=== PATIENT | female | born 1940 | race Caucasian/White ===

== ENCOUNTER 2020-01-30 02:32 | Inpatient (IN) | payer MEDICARE, OTHER ==
[2020-01-30] MEDS ORDERED: MAGNESIUM SULFATE/D5W 1 GM/100 ML RTUPB IV ONE (02:46)
[2020-01-30] MEDS ORDERED: IPRATROPIUM/ALBUTEROL 0.5-2.5 MG/3 ML AMPUL NEB ONE (02:47)
--- NOTE | 2020-01-30 02:48 | ER Document Report ---
ED Respiratory Problem - General Chief Complaint: Respiratory Distress Stated Complaint: RESPIRATORY DISTRESS Time Seen by Provider: 01/30/20 02:35 Notes: Patient is a 79-year-old female with a history of COPD who is a former smoker but not on home oxygen, that comes to the emergency department by EMS for chief complaint of difficulty breathing. She comes from home. Patient states she has had a cough that was her normal cough until around noon today where she started having difficulty breathing, coughing, and wheezing. Patient states she was told by her daughter who checked her temperature that she had a fever at home, EMS states that they were told it was 102 F. Patient was not noted to have a fever on arrival, however on arrival on room air patient was 87% oxygen saturation after EMS had given her 1 DuoNeb, 1 albuterol, and Solu-Medrol 125 mg. Patient denies recent hospitalization. Only other reported medical history is hyperlipidemia. TRAVEL OUTSIDE OF THE [place] IN LAST 30 DAYS: No - Related Data Allergies/Adverse Reactions: Sulfa (Sulfonamide Antibiotics) Adverse Reaction (Verified 05/19/16 14:50) Past Medical History - General Information source: Patient, Emergency Med Personnel - Social History Smoking Status: Former Smoker Lives with: Family Family History: Reviewed & Not Pertinent - Past Medical History Cardiac Medical History: Reports: Hx Hypercholesterolemia Denies: Hx Heart Attack, Hx Hypertension Pulmonary Medical History: Reports: Hx COPD Denies: Hx Asthma Neurological Medical History: Denies: Hx Cerebrovascular Accident, Hx Seizures GI Medical History: Denies: Hx Hepatitis, Hx Hiatal Hernia, Hx Ulcer Infectious Medical History: Denies: Hx Hepatitis Past Surgical History: Denies: Hx Hysterectomy, Hx Mastectomy, Hx Open Heart Surgery, Hx Pacemaker - Immunizations Hx Diphtheria, Pertussis, Tetanus Vaccination: Yes Review of Systems - Review of Systems Constitutional: See HPI EENT: No symptoms reported Cardiovascular: No symptoms reported Respiratory: See HPI Gastrointestinal: No symptoms reported Genitourinary: No symptoms reported Female Genitourinary: No symptoms reported Musculoskeletal: No symptoms reported Skin: No symptoms reported Hematologic/Lymphatic: No symptoms reported Neurological/Psychological: No symptoms reported Physical Exam - Vital signs Vitals: Temp 98.6 F 01/30/20 02:32 - Notes Notes: GENERAL: Alert, interacts well. HEAD: Normocephalic, atraumatic. EYES: Pupils equal, round, and reactive to light. Extraocular movements intact. ENT: Oral mucosa moist, tongue midline. Oropharynx unremarkable. Airway patent. Nares patent, sinuses non-tender NECK: Full range of motion. Supple. Trachea midline. No lymphadenopathy. LUNGS: Decreased breath sounds in the lower lung welsh, expiratory wheezes throughout. Speaks in full sentences. Occasional congested coughing episodes. HEART: Regular rate and rhythm. No murmur ABDOMEN: Soft, non-tender. Non-distended. EXTREMITIES: Moves all 4 extremities spontaneously. No edema, normal radial and dorsalis pedis pulses bilaterally. No cyanosis. BACK: no cervical, thoracic, lumbar midline tenderness. No saddle anesthesia, normal distal neurovascular exam. Moves all extremities in full range of motion. NEUROLOGICAL: Alert and oriented x3. Normal speech. Cranial nerves II through XII grossly intact. Strength 5/5 in all extremities. PSYCH: Normal affect, normal mood. SKIN: Warm, dry, normal turgor. No rashes or lesions noted. Course - Re-evaluation Re-evalutation: Patient was 87% on room air initially, given additional DuoNeb, given magnesium, given IV fluids. Patient was placed on oxygen. With oxygen patient is at about 94 to 95% on average, she states she feels much improved, she does not appear toxic. CBC shows leukopenia, bandemia at 8%. Blood cultures are pending. Chest x-ray indicates right sided pneumonia, pending official read. Patient was started on antibiotics for coverage of community-acquired pneumonia. Lactic acid is not elevated. Chemistry nonspecific, troponin is not elevated, EKG unremarkable. On evaluation patient still has some expiratory wheezing and coughing. Patient will remain on oxygen. Because of her pneumonia, hypoxia, COPD exacerbation, age, will discuss with hospitalist for admission. Patient states understanding and agreement with plan. Discussed with Dr. Laird, hospitalist, patient accepted to telemetry for admission. - Vital Signs Vital signs: Temp Pulse Resp BP Pulse Ox 98.6 F 96 24 H 152/74 H 96 01/30/20 02:32 01/30/20 04:40 01/30/20 06:01 01/30/20 06:01 01/30/20 06:01 - Laboratory Result Diagrams: 01/30/20 03:19 01/30/20 03:19 Laboratory results interpreted by me: 01/30/20 01/30/20 03:19 03:19 WBC 3.7 L RBC 3.67 L MCV 103 H MCH 36.6 H Band Neutrophils % 8 H Lymphocytes % (Manual) 9 L Abs Lymphs (Manual) 0.4 L Sodium 130.6 L Chloride 97 L BUN 24 H - EKG Interpretation by Me Additional EKG results interpreted by me: EKG shows sinus tachycardia at a rate of 109, QTC of 415, normal axis, no T wave inversions or ST segment changes in consecutive leads. Discharge - Discharge Clinical Impression: Hypoxia, COPD exacerbation, Wheezing, Bandemia Pneumonia Qualifiers: Pneumonia type: due to unspecified organism Laterality: right Lung location: lower lobe of lung Qualified Code(s): J18.9 - Pneumonia, unspecified organism Condition: Stable Disposition: ADMITTED INPATIENT Admitting Provider: Eitan (Hospitalist) Unit Admitted: Telemetry
[2020-01-30] MEDS ORDERED: NORMAL SALINE 500 ML IV ONE (02:49)
[2020-01-30] MEDS ORDERED: CEFTRIAXONE 1 GM/D5W RTU 1 GM/50 ML RTUPB IV ONE (03:19)
[2020-01-30] MEDS ORDERED: AZITHROMYCIN INJ 500 MG VIAL IV ONE (03:22)
[2020-01-30 03:39] LABS: WHITE BLOOD COUNT 3.7 10^3/uL (4.0-10.5)
[2020-01-30 03:49] LABS: ALBUMIN 3.9 g/dL (3.5-5.0); ALKALINE PHOSPHATASE 67 U/L (38-126); ANION GAP 8 (5-19); ASPARTATE AMINO TRANSFERASE 25 U/L (14-36); BILIRUBIN,DIRECT 0.1 mg/dL (0.0-0.4); BILIRUBIN,TOTAL 0.8 mg/dL (0.2-1.3); BLOOD UREA NITROGEN 24 mg/dL (7-20); CALCIUM 9.4 mg/dL (8.4-10.2); CARBON DIOXIDE 26 mmol/L (22-30); CHLORIDE 97 mmol/L (98-107); GLUCOSE 108 mg/dL (75-110); POTASSIUM 4.1 mmol/L (3.6-5.0); TOTAL PROTEIN 6.7 g/dL (6.3-8.2)
[2020-01-30 03:54] LABS: HEMATOCRIT 37.8 % (36.0-47.0); HEMOGLOBIN 13.4 g/dL (12.0-15.5); MEAN CORPUSCULAR HEMOGLOBIN 36.6 pg (27.0-33.4); MEAN CORPUSCULAR HGB CONC 35.5 g/dL (32.0-36.0); MEAN CORPUSCULAR VOLUME 103 fl (80-97); RED BLOOD COUNT 3.67 10^6/uL (3.72-5.28); RED CELL DISTRIBUTION WIDTH 13.8 % (11.5-14.0)
--- NOTE | 2020-01-30 04:04 | RADIOLOGY REPORT (SQ) ---
EXAM DESCRIPTION: XR CHEST 1 VIEW COMPLETED DATE/TME: 01/30/2020 02:45 CLINICAL HISTORY: 79 years Female, shortness of breath, hypoxia, cough COMPARISON: None. NUMBER OF VIEWS/TECHNIQUE: 1/AP FINDINGS: Moderate patchy opacities extensively of the right lung. Atherosclerosis. Adequate lung volume, normal cardiac silhouette, and intact bony thorax. IMPRESSION: Moderate patchy opacities of the right lung may indicate pneumonia or asymmetric pulmonary edema. Recommend CR/CT surveillance including at 7-12 weeks following initiation of any clinically warranted therapy.
[2020-01-30 04:19] LABS: ABSOLUTE LYMPHOCYTES# (MANUAL) 0.4 10^3/uL (0.5-4.7); ABSOLUTE MONOCYTES # (MANUAL) 0.2 10^3/uL (0.1-1.4); BAND NEUTROPHILS % (MANUAL) 8 % (3-5); BASOPHILS % (MANUAL) 1 % (0-2); EOSINOPHILS % (MANUAL) 0 % (0-6); LYMPHOCYTES % (MANUAL) 9 % (13-45); MONOCYTES % (MANUAL) 5 % (3-13); SEGMENTED NEUTROPHILS % (MAN) 76 % (42-78); TOTAL CELLS COUNTED 100
[2020-01-30 04:20] LABS: PLATELET CLUMPS PRESENT; PLATELET COMMENT ADEQUATE
[2020-01-30 04:21] LABS: PLATELET COUNT 159 10^3/uL (150-450)
[2020-01-30 04:30] LABS: VENOUS BLOOD BASE EXCESS -1.9 mmol/L; VENOUS BLOOD HCO3 23.6 mmol/L (20-32); VENOUS BLOOD PH 7.36 (7.30-7.42)
[2020-01-30] MEDS ORDERED: HYDRALAZINE HCL INJ/PF 20 MG/1 ML SDV IV PRN (04:36)
[2020-01-30] MEDS ORDERED: IPRATROPIUM/ALBUTEROL 0.5-2.5 MG/3 ML AMPUL NEB PRN (04:37)
[2020-01-30] MEDS: CHLORPHENIRAMINE MALEATE 4 MG TABLET PO SCH ×4 (06:27→22:30)
[2020-01-30] MEDS: HEPARIN SOD (PORCINE) 5,000 UNIT/ML 1 ML VIAL SUBCUT SCH ×3 (06:27→22:28)
[2020-01-30] MEDS: ACETAMINOPHEN 325 MG TABLET PO PRN (06:27)
[2020-01-30] MEDS ORDERED: NICOTINE 14 MG/24 HR PATCH.TD24 TD ONE (06:30)
--- NOTE | 2020-01-30 06:31 | PDOC H&P ---
History of Present Illness Admission Date/PCP: 01/30/20 04:44 SEAN MILLER NP Patient complains of: Shortness of breath fever History of Present Illness: TANI CERON is a 79 year old female with a past medical history of hypothyroidism, dyslipidemia, COPD, chronic bronchitis and persistent tobacco dependence. She presents with 24 hours of shortness of breath and cough developing fever prompting evaluation the emergency department where she is found to have a bandemia and an infiltrate in the right lung. She denies infectious contacts, travel, loss of taste. She admits recent doxycycline for bronchitis. Past Medical History Cardiac Medical History: Reports: Hyperlipidema Denies: Myocardial Infarction, Hypertension Pulmonary Medical History: Reports: Bronchitis, Chronic Obstructive Pulmonary Disease (COPD) Denies: Asthma Neurological Medical History: Denies: Seizures GI Medical History: Denies: Hepatitis, Hiatal Hernia Musculoskeltal Medical History: Reports: Arthritis Psychiatric Medical History: Reports: Tobacco Dependency Hematology: Denies: Anemia, Sickle Cell Disease Past Surgical History Past Surgical History: Denies: Amputation, Hysterectomy, Mastectomy, Pacemaker Social History Lives with: Family Smoking Status: Former Smoker Family History Family History: COPD, Hypertension Parental Family History Reviewed: Yes Children Family History Reviewed: Yes Sibling(s) Family History Reviewed.: Yes Medication/Allergy Home Medications: Aspirin [Aspirin EC] 81 mg PO QHS 05/19/16 Esomeprazole Magnesium [Nexium] 20 mg PO BID 05/19/16 Fluticasone/Salmeterol [Advair 500-50 Diskus 28 Dose] 1 inh IH Q12H 05/19/16 Naproxen Sodium [All Day Pain Relief] 220 mg PO BID 05/19/16 Pravastatin Sodium [Pravachol] 40 mg PO DAILY 05/19/16 Sertraline HCl [Zoloft] 100 mg PO DAILY 05/19/16 Thyroxine 125 mcg PO DAILY 05/19/16 Tiotropium Corona [Spiriva Handihaler 18 mcg/dose (30 Dose)] 1 cap IH DAILY 05/19/16 Albuterol Sulfate [Proair Hfa Inhalation Aerosol 8.5 gm Mdi] 2 puff IH Q4 PRN 05/24/16 Benzonatate [Tessalon Perle 100 mg Capsule] 200 mg PO TID PRN 06/07/16 Difluprednate [Durezol] 1 drop OP TID 06/07/16 Doxycycline Hyclate 100 mg PO BID 06/07/16 Ipratropium/Albuterol Sulfate [Iprat-Albut 0.5-3(2.5) Mg/3 Ml] 3 ml IH Q6H PRN 06/07/16 Allergies/Adverse Reactions: Sulfa (Sulfonamide Antibiotics) Adverse Reaction (Verified 05/19/16 14:50) Review of Systems Constitutional: ABSENT: chills, fever(s), headache(s), weight gain, weight loss Eyes: ABSENT: visual disturbances Ears: ABSENT: hearing changes Cardiovascular: ABSENT: chest pain, dyspnea on exertion, edema, orthropnea, palpitations Respiratory: ABSENT: cough, hemoptysis Gastrointestinal: ABSENT: abdominal pain, constipation, diarrhea, hematemesis, hematochezia, nausea, vomiting Genitourinary: ABSENT: dysuria, hematuria Musculoskeletal: ABSENT: joint swelling Integumentary: ABSENT: rash, wounds Neurological: ABSENT: abnormal gait, abnormal speech, confusion, dizziness, focal weakness, syncope Psychiatric: ABSENT: anxiety, depression, homidical ideation, suicidal ideation Endocrine: ABSENT: cold intolerance, heat intolerance, polydipsia, polyuria Hematologic/Lymphatic: ABSENT: easy bleeding, easy bruising Physical Exam Vital Signs: Temp Pulse Resp BP Pulse Ox 98.6 F 96 24 H 152/74 H 96 01/30/20 02:32 01/30/20 04:40 01/30/20 06:01 01/30/20 06:01 01/30/20 06:01 Intake & Output 01/28/20 01/29/20 01/30/20 11:59 11:59 11:59 Intake Total 650 Balance 650 Weight 69.1 kg General appearance: PRESENT: cooperative, disheveled, mild distress, thin, well- developed. ABSENT: well-nourished Head exam: PRESENT: atraumatic, normocephalic Eye exam: PRESENT: conjunctiva pink, EOMI, PERRLA. ABSENT: scleral icterus Ear exam: PRESENT: normal external ear exam Mouth exam: PRESENT: moist, tongue midline Neck exam: ABSENT: carotid bruit, JVD, lymphadenopathy, thyromegaly Respiratory exam: PRESENT: accessory muscle use, crackles, decreased breath sounds, prolonged expiratory phas, retraction, rhonchi, symmetrical. ABSENT: wheezes Cardiovascular exam: PRESENT: RRR. ABSENT: diastolic murmur, rubs, systolic murmur Pulses: PRESENT: normal dorsalis pedis pul Vascular exam: PRESENT: normal capillary refill GI/Abdominal exam: PRESENT: normal bowel sounds, soft. ABSENT: distended, guarding, mass, organolmegaly, rebound, tenderness Rectal exam: PRESENT: deferred Extremities exam: PRESENT: full ROM. ABSENT: calf tenderness, clubbing, pedal edema Neurological exam: PRESENT: alert, awake, oriented to person, oriented to place, oriented to time, oriented to situation, CN II-XII grossly intact. ABSENT: motor sensory deficit Psychiatric exam: PRESENT: appropriate affect, normal mood. ABSENT: homicidal ideation, suicidal ideation Skin exam: PRESENT: dry, intact, warm. ABSENT: cyanosis, rash Results Laboratory Results: 01/30/20 03:19 01/30/20 03:19 01/30/20 01/30/20 01/30/20 03:19 03:19 03:19 WBC 3.7 L RBC 3.67 L Hgb 13.4 Hct 37.8 MCV 103 H MCH 36.6 H MCHC 35.5 RDW 13.8 Plt Count 159 Seg Neutrophils % Not Reportable VBG pH VBG pCO2 VBG HCO3 VBG Base Excess Sodium 130.6 L Potassium 4.1 Chloride 97 L Carbon Dioxide 26 Anion Gap 8 BUN 24 H Creatinine 0.87 Est GFR ( Amer) > 60 Glucose 108 Lactic Acid 1.2 Calcium 9.4 Total Bilirubin 0.8 AST 25 Alkaline Phosphatase 67 Total Protein 6.7 Albumin 3.9 01/30/20 04:23 WBC RBC Hgb Hct MCV MCH MCHC RDW Plt Count Seg Neutrophils % VBG pH 7.36 VBG pCO2 43.0 VBG HCO3 23.6 VBG Base Excess -1.9 Sodium Potassium Chloride Carbon Dioxide Anion Gap BUN Creatinine Est GFR ( Amer) Glucose Lactic Acid Calcium Total Bilirubin AST Alkaline Phosphatase Total Protein Albumin 01/30/20 03:19 Troponin I < 0.012 Impressions: Chest X-Ray 01/30/20 02:45 IMPRESSION: Moderate patchy opacities of the right lung may indicate pneumonia or asymmetric pulmonary edema. Recommend CR/CT surveillance including at 7-12 weeks following initiation of any clinically warranted therapy. Assessment and Plan - Diagnosis (1) Pneumonia Qualifiers: Pneumonia type: due to unspecified organism Laterality: right Lung location: lower lobe of lung Qualified Code(s): J18.9 - Pneumonia, unspecified organism Is this a current diagnosis for this admission?: Yes Plan: Pneumonia care set, empiric antibiotic, supplemental oxygen, Flonase and incentive spirometry, follow-up CBC blood and sputum culture (2) Bandemia Is this a current diagnosis for this admission?: Yes Plan: Secondary to #1, follow-up CBC (3) COPD exacerbation Is this a current diagnosis for this admission?: Yes Plan: Supplemental oxygen, incentive spirometry, flutter valve (4) Macrocytic anemia Is this a current diagnosis for this admission?: Yes Plan: Follow-up anemia labs (5) Tobacco dependence Is this a current diagnosis for this admission?: Yes Plan: Tobacco cessation counseling performed, nicotine replacement options discussed, nicotine patch ordered. - Time Time Spent with patient: 25-34 minutes
[2020-01-30 06:32] LABS: ABSOLUTE RETICS # 0.038 10^6/uL (0.028-0.122); RETICULOCYTE COUNT (AUTO) 1.04 % (0.66-2.85)
[2020-01-30 06:39] LABS: IRON(TIBC) 140.2 ug/dL (37-170)
[2020-01-30] MEDS: NORMAL SALINE 1000 ML 1,000 ML IV PRN ×2 (07:07→18:09)
[2020-01-30] MEDS: KETOROLAC TROMETHAMINE INJ/PF 30 MG/1 ML SDV IV PRN ×2 (07:10→23:25)
--- NOTE | 2020-01-30 07:40 | EKG REPORT ---
SEVERITY:- ABNORMAL ECG - SINUS TACHYCARDIA VENTRICULAR PREMATURE COMPLEX LOW VOLTAGE IN FRONTAL LEADS NONSPECIFIC T ABNORMALITIES, ANT-LAT LEADS : Confirmed by: Greg Nettles MD 30-Jan-2020 07:40:03
[2020-01-30] MEDS ORDERED: IPRATROPIUM/ALBUTEROL 0.5-2.5 MG/3 ML AMPUL NEB SCH (08:00)
[2020-01-30] MEDS: FLUTICASONE NASAL SPRAY 50 MCG/SPRY 120 SPRAY/16 GM NASL SCH ×2 (10:59→22:29)
[2020-01-30] MEDS: OXYBUTYNIN CHLORIDE 5 MG TABLET PO SCH (18:00)
[2020-01-30] MEDS: BUDESONIDE NEB 0.25 MG/2 ML AMPUL NEB SCH (20:49)
[2020-01-30] MEDS: IPRATROPIUM/ALBUTEROL 0.5-2.5 MG/3 ML AMPUL NEB SCH (20:49)
[2020-01-30] MEDS: BUPROPION HCL 100 MG TABLET PO SCH (22:28)
[2020-01-30] MEDS: CEFTRIAXONE 1 GM/D5W RTU 1 GM/50 ML RTUPB IV SCH (22:28)
[2020-01-30] MEDS: AZITHROMYCIN 500 MG in DEXTROSE 5%-WATER 250 ML IV SCH (22:29)
[2020-01-30] MEDS: ASPIRIN 81 MG TABLET, ENT COATED PO SCH (22:29)
[2020-01-31] MEDS: BUPROPION HCL 100 MG TABLET PO SCH ×3 (05:33→21:48)
[2020-01-31] MEDS: LEVOTHYROXINE SODIUM 0.15 MG TABLET PO SCH (05:34)
[2020-01-31] MEDS: HEPARIN SOD (PORCINE) 5,000 UNIT/ML 1 ML VIAL SUBCUT SCH ×3 (05:34→21:50)
[2020-01-31 05:56] LABS: ABSOLUTE LYMPHOCYTES (AUTO) 1.1 10^3/uL (0.5-4.7); ABSOLUTE MONOCYTES (AUTO) 0.5 10^3/uL (0.1-1.4); ABSOLUTE NEUT (AUTO) 8.1 10^3/uL (1.7-8.2); BASOPHILS % (AUTO) 0.2 % (0-2); EOSINOPHILS % (AUTO) 0.1 % (0-6); HEMATOCRIT 30.3 % (36.0-47.0); LYMPHOCYTES % (AUTO) 11.4 % (13-45); MEAN CORPUSCULAR HEMOGLOBIN 37.4 pg (27.0-33.4); MEAN CORPUSCULAR HGB CONC 36.1 g/dL (32.0-36.0); MEAN CORPUSCULAR VOLUME 104 fl (80-97); MONOCYTES % (AUTO) 5.2 % (3-13); PLATELET COUNT 129 10^3/uL (150-450); RED BLOOD COUNT 2.92 10^6/uL (3.72-5.28); RED CELL DISTRIBUTION WIDTH 13.6 % (11.5-14.0); SEGMENTED NEUTROPHILS % (AUTO) 83.1 % (42-78); TOTAL CELLS COUNTED % (AUTO) 100 %
[2020-01-31 05:59] LABS: WHITE BLOOD COUNT 9.7 10^3/uL (4.0-10.5)
[2020-01-31 06:00] LABS: HEMOGLOBIN 10.9 g/dL (12.0-15.5)
[2020-01-31 06:10] LABS: ANION GAP 5 (5-19); BLOOD UREA NITROGEN 22 mg/dL (7-20); CALCIUM 8.6 mg/dL (8.4-10.2); CARBON DIOXIDE 25 mmol/L (22-30); CHLORIDE 98 mmol/L (98-107); GLUCOSE 88 mg/dL (75-110)
[2020-01-31] MEDS: IPRATROPIUM/ALBUTEROL 0.5-2.5 MG/3 ML AMPUL NEB SCH ×3 (08:44→20:15)
[2020-01-31] MEDS: BUDESONIDE NEB 0.25 MG/2 ML AMPUL NEB SCH ×2 (08:50→20:15)
[2020-01-31] MEDS: CHOLECALCIFEROL (D3) 1,000 UNIT (25 MCG) TABLET PO SCH (09:54)
[2020-01-31] MEDS: PANTOPRAZOLE SODIUM 20 MG TABLET.DR PO SCH (09:54)
[2020-01-31] MEDS: UMECLIDINIUM BROMIDE 62.5 MCG/DOSE IH SCH (09:54)
[2020-01-31] MEDS: CYANOCOBALAMIN (VITAMIN B-12) 1,000 MCG TABLET PO SCH (09:54)
[2020-01-31] MEDS: SERTRALINE HCL 50 MG TABLET PO SCH (09:55)
[2020-01-31] MEDS: OXYBUTYNIN CHLORIDE 5 MG TABLET PO SCH ×2 (09:55→17:25)
[2020-01-31] MEDS: NICOTINE 14 MG/24 HR PATCH.TD24 TD SCH (09:55)
[2020-01-31] MEDS: FLUTICASONE NASAL SPRAY 50 MCG/SPRY 120 SPRAY/16 GM NASL SCH ×2 (09:59→21:49)
[2020-01-31] MEDS ORDERED: MAG HYDROX/AL HYDROX/SIMETH SUSP 30 ML UDCUP PO PRN (11:51)
--- NOTE | 2020-01-31 12:10 | PDOC PROGRESS REPORT ---
Subjective Progress Note for:: 01/31/20 Subjective:: Patient complains of low heartburn today. States that she feels short of breath on ambulation today. She does not use oxygen at home. Reason For Visit: PNEUMONIA,HYPOXIA,COPD EXACERBATION,WHEEZING, Physical Exam Vital Signs: Temp Pulse Resp BP Pulse Ox 97.8 F 81 16 132/76 H 95 01/31/20 08:00 01/31/20 08:44 01/31/20 08:44 01/31/20 08:00 01/31/20 08:44 Intake & Output 01/30/20 01/31/20 02/01/20 06:59 06:59 06:59 Intake Total 650 3120 Output Total 2 Balance 650 3118 Weight 69.1 kg 68.2 kg General appearance: PRESENT: no acute distress, cooperative, well-nourished. ABSENT: severe distress Neck exam: ABSENT: JVD Respiratory exam: PRESENT: crackles - Right lower lung, symmetrical, unlabored, wheezes. ABSENT: tachypnea Cardiovascular exam: PRESENT: RRR, +S1, +S2. ABSENT: tachycardia GI/Abdominal exam: PRESENT: soft. ABSENT: rebound, rigid, tenderness Extremities exam: PRESENT: +1 edema Neurological exam: PRESENT: alert, awake, oriented to person, oriented to place, oriented to time Results Laboratory Results: 01/31/20 05:29 01/31/20 05:29 01/30/20 01/30/20 01/31/20 13:50 17:53 05:29 WBC 9.7 D RBC 2.92 L Hgb 10.9 L D Hct 30.3 L MCV 104 H MCH 37.4 H MCHC 36.1 H RDW 13.6 Plt Count 129 L Seg Neutrophils % 83.1 H Sodium Potassium Chloride Carbon Dioxide Anion Gap BUN Creatinine Est GFR ( Amer) Glucose Lactic Acid 3.4 H 1.3 Calcium 01/31/20 05:29 WBC RBC Hgb Hct MCV MCH MCHC RDW Plt Count Seg Neutrophils % Sodium 128.2 L Potassium 4.0 Chloride 98 Carbon Dioxide 25 Anion Gap 5 BUN 22 H Creatinine 0.66 Est GFR ( Amer) > 60 Glucose 88 Lactic Acid Calcium 8.6 01/30/20 03:19 Troponin I < 0.012 Impressions: Chest X-Ray 01/30/20 02:45 IMPRESSION: Moderate patchy opacities of the right lung may indicate pneumonia or asymmetric pulmonary edema. Recommend CR/CT surveillance including at 7-12 weeks following initiation of any clinically warranted therapy. Assessment and Plan - Diagnosis (1) Community acquired bacterial pneumonia Is this a current diagnosis for this admission?: Yes Plan: Ceftriaxone and azithromycin day 2. Right-sided pneumonia. Denies history of aspiration. Follow-up blood cultures. (2) Hyponatremia Is this a current diagnosis for this admission?: Yes Plan: Likely secondary to receiving fluids yesterday. Fluids have been discontinued. Will monitor sodium levels. (3) COPD exacerbation Is this a current diagnosis for this admission?: Yes Plan: Triggered by right-sided pneumonia. Frequent nebulizer treatments. Will start on IV steroids today. (4) GERD (gastroesophageal reflux disease) Qualifiers: Esophagitis presence: esophagitis presence not specified Qualified Code(s): K21.9 - Gastro-esophageal reflux disease without esophagitis Is this a current diagnosis for this admission?: Yes Plan: PPI. Maalox as needed (5) Sepsis Qualifiers: Sepsis type: sepsis due to unspecified organism Sepsis acute organ dysfunction status: unspecified Qualified Code(s): A41.9 - Sepsis, unspecified organism Is this a current diagnosis for this admission?: Yes Plan: Pneumonia with lactic acidosis, leukopenia, tachycardia, tachypnea and respiratory distress. Seems to be that patient sepsis has improved with fluids. Lactic acidosis has resolved status post fluids. Monitor. (6) Tobacco dependence Is this a current diagnosis for this admission?: Yes Plan: Nicotine patch offered. Tobacco cessation counseling performed. - Time Time Spent with patient: Less than 15 minutes
[2020-01-31] MEDS: METHYLPREDNISOLONE INJ 40 MG/1 ML SDV IV SCH ×2 (13:25→21:48)
[2020-01-31] MEDS: ASPIRIN 81 MG TABLET, ENT COATED PO SCH (21:48)
[2020-01-31] MEDS: CEFTRIAXONE 1 GM/D5W RTU 1 GM/50 ML RTUPB IV SCH (21:49)
[2020-01-31] MEDS: AZITHROMYCIN 500 MG in DEXTROSE 5%-WATER 250 ML IV SCH (21:49)
[2020-02-01] MEDS: HEPARIN SOD (PORCINE) 5,000 UNIT/ML 1 ML VIAL SUBCUT SCH ×3 (05:10→21:00)
[2020-02-01] MEDS: BUPROPION HCL 100 MG TABLET PO SCH ×2 (05:10→17:25)
[2020-02-01] MEDS: LEVOTHYROXINE SODIUM 0.15 MG TABLET PO SCH (05:10)
[2020-02-01 06:13] LABS: HEMATOCRIT 31.6 % (36.0-47.0); HEMOGLOBIN 11.3 g/dL (12.0-15.5); MEAN CORPUSCULAR HEMOGLOBIN 36.9 pg (27.0-33.4); MEAN CORPUSCULAR HGB CONC 35.6 g/dL (32.0-36.0); MEAN CORPUSCULAR VOLUME 104 fl (80-97); PLATELET COUNT 144 10^3/uL (150-450); RED BLOOD COUNT 3.05 10^6/uL (3.72-5.28); RED CELL DISTRIBUTION WIDTH 13.9 % (11.5-14.0); WHITE BLOOD COUNT 8.6 10^3/uL (4.0-10.5)
[2020-02-01 06:49] LABS: ANION GAP 7 (5-19); BLOOD UREA NITROGEN 17 mg/dL (7-20); CARBON DIOXIDE 26 mmol/L (22-30); CHLORIDE 96 mmol/L (98-107); GLUCOSE 137 mg/dL (75-110); POTASSIUM 4.3 mmol/L (3.6-5.0)
[2020-02-01 07:17] LABS: ABSOLUTE LYMPHOCYTES# (MANUAL) 0.4 10^3/uL (0.5-4.7); BAND NEUTROPHILS % (MANUAL) 2 % (3-5); BASOPHILS % (MANUAL) 0 % (0-2); EOSINOPHILS % (MANUAL) 0 % (0-6); LYMPHOCYTES % (MANUAL) 5 % (13-45); MONOCYTES % (MANUAL) 0 % (3-13); SEGMENTED NEUTROPHILS % (MAN) 93 % (42-78); TOTAL CELLS COUNTED 100
[2020-02-01 07:22] LABS: ANISOCYTOSIS SLIGHT; HYPOCHROMASIA SLIGHT; OVALOCYTES SLIGHT; POIKILOCYTOSIS SLIGHT; TEAR DROP CELLS SLIGHT; TOXIC GRANULATION SLIGHT; TOXIC VACUOLATION PRESENT
[2020-02-01 07:23] LABS: PLATELET COMMENT ADEQUATE
[2020-02-01] MEDS: BUDESONIDE NEB 0.25 MG/2 ML AMPUL NEB SCH ×2 (09:00→20:15)
[2020-02-01] MEDS: IPRATROPIUM/ALBUTEROL 0.5-2.5 MG/3 ML AMPUL NEB SCH ×3 (09:00→20:16)
[2020-02-01] MEDS: FLUTICASONE NASAL SPRAY 50 MCG/SPRY 120 SPRAY/16 GM NASL SCH ×2 (09:48→21:01)
[2020-02-01] MEDS: CHOLECALCIFEROL (D3) 1,000 UNIT (25 MCG) TABLET PO SCH (09:56)
[2020-02-01] MEDS: OXYBUTYNIN CHLORIDE 5 MG TABLET PO SCH ×2 (09:56→17:25)
[2020-02-01] MEDS: UMECLIDINIUM BROMIDE 62.5 MCG/DOSE IH SCH (09:56)
[2020-02-01] MEDS: CYANOCOBALAMIN (VITAMIN B-12) 1,000 MCG TABLET PO SCH (09:56)
[2020-02-01] MEDS: PANTOPRAZOLE SODIUM 20 MG TABLET.DR PO SCH (09:57)
[2020-02-01] MEDS: METHYLPREDNISOLONE INJ 40 MG/1 ML SDV IV SCH ×2 (09:57→21:00)
[2020-02-01] MEDS: NICOTINE 14 MG/24 HR PATCH.TD24 TD SCH (09:57)
[2020-02-01] MEDS: SERTRALINE HCL 50 MG TABLET PO SCH (09:57)
--- NOTE | 2020-02-01 12:36 | PDOC PROGRESS REPORT ---
Subjective Progress Note for:: 02/01/20 Subjective:: Patient's feels her breathing is improved but still feels shortness of breath when she ambulates from bed onto her commode. Denies any chest pain. Still having some cough but is mild. Reason For Visit: PNEUMONIA,HYPOXIA,COPD EXACERBATION,WHEEZING, Physical Exam Vital Signs: Temp Pulse Resp BP Pulse Ox 98.0 F 87 16 151/65 H 93 02/01/20 10:46 02/01/20 10:46 02/01/20 10:46 02/01/20 10:46 02/01/20 10:46 Intake & Output 01/31/20 02/01/20 02/02/20 06:59 06:59 06:59 Intake Total 3120 1530 Output Total 2 Balance 3118 1530 Weight 68.2 kg 65.2 kg General appearance: PRESENT: no acute distress, cooperative Respiratory exam: PRESENT: symmetrical, unlabored, wheezes. ABSENT: tachypnea GI/Abdominal exam: PRESENT: soft. ABSENT: rebound, rigid, tenderness Neurological exam: PRESENT: alert, awake Results Laboratory Results: 02/01/20 05:58 02/01/20 05:38 02/01/20 02/01/20 05:38 05:58 WBC 8.6 RBC 3.05 L Hgb 11.3 L Hct 31.6 L MCV 104 H MCH 36.9 H MCHC 35.6 RDW 13.9 Plt Count 144 L Seg Neutrophils % Not Reportable Sodium 129.4 L Potassium 4.3 Chloride 96 L Carbon Dioxide 26 Anion Gap 7 BUN 17 Creatinine 0.58 Est GFR ( Amer) > 60 Glucose 137 H Calcium 9.0 01/30/20 03:19 Troponin I < 0.012 Impressions: Chest X-Ray 01/30/20 02:45 IMPRESSION: Moderate patchy opacities of the right lung may indicate pneumonia or asymmetric pulmonary edema. Recommend CR/CT surveillance including at 7-12 weeks following initiation of any clinically warranted therapy. Assessment and Plan - Diagnosis (1) Community acquired bacterial pneumonia Is this a current diagnosis for this admission?: Yes Plan: Ceftriaxone and azithromycin day 3. Right-sided pneumonia. Denies history of aspiration. Blood cultures are negative so far. SPO2 is adequate on room air. On 0.5 L nasal cannula for comfort only. (2) Hyponatremia Is this a current diagnosis for this admission?: Yes Plan: Sodium level is stable. Likely contributing factor from IV fluids on admission date. We will continue to monitor BMP. (3) COPD exacerbation Is this a current diagnosis for this admission?: Yes Plan: Triggered by right-sided pneumonia. Frequent nebulizer treatments. Continue IV steroids. (4) GERD (gastroesophageal reflux disease) Qualifiers: Esophagitis presence: esophagitis presence not specified Qualified Code(s): K21.9 - Gastro-esophageal reflux disease without esophagitis Is this a current diagnosis for this admission?: Yes Plan: PPI. Maalox as needed (5) Sepsis Qualifiers: Sepsis type: sepsis due to unspecified organism Sepsis acute organ dysfunction status: unspecified Qualified Code(s): A41.9 - Sepsis, unspecified organism Is this a current diagnosis for this admission?: Yes Plan: Resolved (6) Tobacco dependence Is this a current diagnosis for this admission?: Yes Plan: Nicotine patch offered. Tobacco cessation counseling performed. - Time Time Spent with patient: Less than 15 minutes
[2020-02-01] MEDS: ASPIRIN 81 MG TABLET, ENT COATED PO SCH (21:00)
[2020-02-01] MEDS: CEFTRIAXONE 1 GM/D5W RTU 1 GM/50 ML RTUPB IV SCH (21:00)
[2020-02-01] MEDS: AZITHROMYCIN 500 MG in DEXTROSE 5%-WATER 250 ML IV SCH (21:01)
[2020-02-02] MEDS: ACETAMINOPHEN 325 MG TABLET PO PRN (01:32)
[2020-02-02] MEDS: LEVOTHYROXINE SODIUM 0.15 MG TABLET PO SCH (05:34)
[2020-02-02] MEDS: HEPARIN SOD (PORCINE) 5,000 UNIT/ML 1 ML VIAL SUBCUT SCH ×2 (05:35→13:34)
[2020-02-02 06:09] LABS: ANION GAP 7 (5-19); BLOOD UREA NITROGEN 18 mg/dL (7-20); CALCIUM 9.2 mg/dL (8.4-10.2); CARBON DIOXIDE 26 mmol/L (22-30); CHLORIDE 95 mmol/L (98-107); GLUCOSE 125 mg/dL (75-110); POTASSIUM 4.3 mmol/L (3.6-5.0)
[2020-02-02] MEDS: BUDESONIDE NEB 0.25 MG/2 ML AMPUL NEB SCH (08:01)
[2020-02-02] MEDS: IPRATROPIUM/ALBUTEROL 0.5-2.5 MG/3 ML AMPUL NEB SCH ×2 (08:01→14:22)
[2020-02-02] MEDS: CHOLECALCIFEROL (D3) 1,000 UNIT (25 MCG) TABLET PO SCH (09:33)
[2020-02-02] MEDS: SERTRALINE HCL 50 MG TABLET PO SCH (09:34)
[2020-02-02] MEDS: PANTOPRAZOLE SODIUM 20 MG TABLET.DR PO SCH (09:34)
[2020-02-02] MEDS: BUPROPION HCL 100 MG TABLET PO SCH (09:34)
[2020-02-02] MEDS: CYANOCOBALAMIN (VITAMIN B-12) 1,000 MCG TABLET PO SCH (09:34)
[2020-02-02] MEDS: UMECLIDINIUM BROMIDE 62.5 MCG/DOSE IH SCH (09:35)
[2020-02-02] MEDS: OXYBUTYNIN CHLORIDE 5 MG TABLET PO SCH (09:35)
[2020-02-02] MEDS: METHYLPREDNISOLONE INJ 40 MG/1 ML SDV IV SCH (09:36)
[2020-02-02] MEDS: FLUTICASONE NASAL SPRAY 50 MCG/SPRY 120 SPRAY/16 GM NASL SCH (09:36)
[2020-02-02] MEDS: NICOTINE 14 MG/24 HR PATCH.TD24 TD SCH (09:39)
--- NOTE | 2020-02-02 11:54 | PDOC DISCHARGE SUMMARY ---
Impression - Admit/DC Date/PCP Admission Date/Primary Care Provider: 01/30/20 04:44 SEAN MILLER NP Discharge Date: 02/02/20 - Discharge Diagnosis (1) Community acquired bacterial pneumonia Is this a current diagnosis for this admission?: Yes (2) Hyponatremia Is this a current diagnosis for this admission?: Yes (3) COPD exacerbation Is this a current diagnosis for this admission?: Yes (4) GERD (gastroesophageal reflux disease) Is this a current diagnosis for this admission?: Yes (5) Sepsis Is this a current diagnosis for this admission?: Yes (6) Tobacco dependence Is this a current diagnosis for this admission?: Yes - Additional Information Discharge Diet: As Tolerated Discharge Activity: Activity As Tolerated, Slowly Increase Activity Referrals: SEAN MILLER NP [Primary Care Provider] - Prescriptions: Cefdinir 300 mg PO Q12 7 Days #14 capsule Prednisone [Deltasone 20 mg Tablet] 40 mg PO DAILY 3 Days #6 tablet Home Medications: Aspirin [Aspirin EC] 81 mg PO QHS 05/19/16 Fluticasone/Salmeterol [Advair 500-50 Diskus 28 Dose] 1 inh IH Q12 05/19/16 Pravastatin Sodium [Pravachol] 80 mg PO DAILY 05/19/16 Sertraline HCl [Zoloft] 100 mg PO DAILY 05/19/16 Tiotropium [place] [Spiriva Handihaler 18 mcg/dose (30 Dose)] 1 cap IH DAILY Albuterol Sulfate [Proair HFA Inhalation Aerosol 8.5 gm MDI] 2 puff IH Q4 PRN 05/24/16 Ipratropium/Albuterol Sulfate [Iprat-Albut 0.5-3(2.5) mg/3 ml] 3 ml IH TIDP PRN 06/07/16 Bupropion HCl [Bupropion Xl] 300 mg PO DAILY 01/30/20 Cholecalciferol (Vitamin D3) [Vitamin D3 1000 Unit Tablet] 2,000 unit PO DAILY 01/30/20 Cyanocobalamin (Vitamin B-12) [Vitamin B-12 1000 mcg Tablet] 1,000 mcg PO DAILY 01/30/20 Diclofenac Sodium 4 gm TP QIDP PRN MDD LEFT HIP & KNEE 01/30/20 Levothyroxine Sodium 137 mcg PO Q6AM 01/30/20 Omeprazole 20 mg PO DAILY 01/30/20 Oxybutynin Chloride [Oxybutynin Chloride ER] 10 mg PO DAILY 01/30/20 Cefdinir 300 mg PO Q12 7 Days #14 capsule 02/02/20 Prednisone [Deltasone 20 mg Tablet] 40 mg PO DAILY 3 Days #6 tablet 02/02/20 History of Present Illiness History of Present Illness: TANI CERON is a 79 year old female with a past medical history of hypothyroidism, dyslipidemia, COPD, chronic bronchitis and persistent tobacco dependence. She presents with 24 hours of shortness of breath and cough developing fever prompting evaluation the emergency department where she is found to have a bandemia and an infiltrate in the right lung. She denies infectious contacts, travel, loss of taste. She admits recent doxycycline for bronchitis. Hospital Course Hospital Course: Patient was admitted for evaluation of shortness of breath. Chest x-ray revealed a pneumonia. COVID-19 test was negative. She was also noted to have sepsis with leukopenia, tachypnea, tachycardia, lactic acidosis and mild respiratory distress. She was started on treatment for pneumonia with ceftriaxone and azithromycin. She has completed therapy with azithromycin and will be discharged on cefdinir for 7 days. Patient's breathing has improved. Patient was noted to have COPD exacerbation as well with active wheezing which was thought to be secondary to patient's pneumonia and continued smoking. Patient was counseled significantly on smoking cessation. Patient was placed on frequent nebulizer treatments and steroids. Being discharged on brief regimen of prednisone. Ambulatory pulse ox today was adequate with SPO2 not dropping below 89% on room air. Patient counseled to use her nebulizer albuterol 3-4 times a day for the next 5 days then going back to using it on an as-needed basis only. Patient was also diagnosed with hyponatremia. Sodium level was low but stable between 128 and 130. This is thought to be secondary to patient's sertraline use and has been advised to reduce to half the dose of 50 mg daily and follow-up with her primary care provider within 1 to 2 weeks for remeasurement of her BMP. Patient is safe and stable for discharge. Physical Exam Vital Signs: Temp Pulse Resp BP Pulse Ox 98.2 F 78 16 158/79 H 96 02/02/20 07:40 02/02/20 09:32 02/02/20 08:01 02/02/20 07:40 02/02/20 08:01 Intake & Output 02/01/20 02/02/20 02/03/20 06:59 06:59 06:59 Intake Total 1530 780 Balance 1530 780 Weight 65.2 kg 65.2 kg General appearance: PRESENT: no acute distress, cooperative Respiratory exam: PRESENT: symmetrical, unlabored, wheezes. ABSENT: accessory muscle use, retraction, tachypnea Musculoskeletal exam: PRESENT: ambulatory Neurological exam: PRESENT: alert, awake Results Laboratory Results: WBC 8.6 10^3/uL (4.0-10.5) 02/01/20 05:58 RBC 3.05 10^6/uL (3.72-5.28) L 02/01/20 05:58 Hgb 11.3 g/dL (12.0-15.5) L 02/01/20 05:58 Hct 31.6 % (36.0-47.0) L 02/01/20 05:58 MCV 104 fl (80-97) H 02/01/20 05:58 MCH 36.9 pg (27.0-33.4) H 02/01/20 05:58 MCHC 35.6 g/dL (32.0-36.0) 02/01/20 05:58 RDW 13.9 % (11.5-14.0) 02/01/20 05:58 Plt Count 144 10^3/uL (150-450) L 02/01/20 05:58 Lymph % (Auto) Not Reportable 02/01/20 05:58 Irwin % (Auto) Not Reportable 02/01/20 05:58 Eos % (Auto) Not Reportable 02/01/20 05:58 Baso % (Auto) Not Reportable 02/01/20 05:58 Reticulocyte # 0.038 10^6/uL (0.028-0.122) 01/30/20 03:19 Absolute Neuts (auto) Not Reportable 02/01/20 05:58 Absolute Lymphs (auto) Not Reportable 02/01/20 05:58 Absolute Monos (auto) Not Reportable 02/01/20 05:58 Absolute Eos (auto) Not Reportable 02/01/20 05:58 Absolute Basos (auto) Not Reportable 02/01/20 05:58 Total Counted 100 02/01/20 05:58 Seg Neutrophils % Not Reportable 02/01/20 05:58 Seg Neuts % (Manual) 93 % (42-78) H 02/01/20 05:58 Band Neutrophils % 2 % (3-5) L 02/01/20 05:58 Lymphocytes % (Manual) 5 % (13-45) L 02/01/20 05:58 Atypical Lymphs % 1 % (0) 01/30/20 03:19 Monocytes % (Manual) 0 % (3-13) L 02/01/20 05:58 Eosinophils % (Manual) 0 % (0-6) 02/01/20 05:58 Basophils % (Manual) 0 % (0-2) 02/01/20 05:58 Abs Neuts (Manual) 8.2 10^3/uL (1.7-8.2) 02/01/20 05:58 Abs Lymphs (Manual) 0.4 10^3/uL (0.5-4.7) L 02/01/20 05:58 Abs Monocytes (Manual) 0.0 10^3/uL (0.1-1.4) L 02/01/20 05:58 Absolute Eos (Manual) 0.0 10^3/uL (0.0-0.6) 02/01/20 05:58 Abs Basophils (Manual) 0.0 10^3/uL (0.0-0.2) 02/01/20 05:58 Toxic Granulation SLIGHT 02/01/20 05:58 Toxic Vacuolation PRESENT 02/01/20 05:58 Clumped Platelets PRESENT 01/30/20 03:19 Platelet Comment ADEQUATE 02/01/20 05:58 Hypochromasia SLIGHT 02/01/20 05:58 Poikilocytosis SLIGHT 02/01/20 05:58 Anisocytosis SLIGHT 02/01/20 05:58 Macrocytosis 1+ 01/30/20 03:19 Tear Drop Cells SLIGHT 02/01/20 05:58 Ovalocytes SLIGHT 02/01/20 05:58 Retic Count (auto) 1.04 % (0.66-2.85) 01/30/20 03:19 VBG pH 7.36 (7.30-7.42) 01/30/20 04:23 VBG pCO2 43.0 mmHg (35-63) 01/30/20 04:23 VBG HCO3 23.6 mmol/L (20-32) 01/30/20 04:23 VBG Base Excess -1.9 mmol/L 01/30/20 04:23 Sodium 128.3 mmol/L (137-145) L 02/02/20 05:20 Potassium 4.3 mmol/L (3.6-5.0) 02/02/20 05:20 Chloride 95 mmol/L (98-107) L 02/02/20 05:20 Carbon Dioxide 26 mmol/L (22-30) 02/02/20 05:20 Anion Gap 7 (5-19) 02/02/20 05:20 BUN 18 mg/dL (7-20) 02/02/20 05:20 Creatinine 0.69 mg/dL (0.52-1.25) 02/02/20 05:20 Est GFR ( Amer) > 60 (>60) 02/02/20 05:20 Est GFR (MDRD) Non-Af > 60 (>60) 02/02/20 05:20 Glucose 125 mg/dL (75-110) H 02/02/20 05:20 Lactic Acid 1.3 mmol/L (0.7-2.1) 01/30/20 17:53 Calcium 9.2 mg/dL (8.4-10.2) 02/02/20 05:20 Iron 140.2 ug/dL (37-170) 01/30/20 03:19 TIBC 309 ug/dL (250-450) 01/30/20 03:19 % Saturation 45 % 01/30/20 03:19 Ferritin 42.70 ng/mL (11.1-264.0) 01/30/20 03:19 Total Bilirubin 0.8 mg/dL (0.2-1.3) 01/30/20 03:19 Direct Bilirubin 0.1 mg/dL (0.0-0.4) 01/30/20 03:19 Neonat Total Bilirubin Not Reportable 01/30/20 03:19 Neonat Direct Bilirubin Not Reportable 01/30/20 03:19 Neonat Indirect Bili Not Reportable 01/30/20 03:19 AST 25 U/L (14-36) 01/30/20 03:19 ALT 13 U/L (<35) 01/30/20 03:19 Alkaline Phosphatase 67 U/L (38-126) 01/30/20 03:19 Troponin I < 0.012 ng/mL 01/30/20 03:19 Total Protein 6.7 g/dL (6.3-8.2) 01/30/20 03:19 Albumin 3.9 g/dL (3.5-5.0) 01/30/20 03:19 Vitamin B12 > 1000.0 pg/mL (239-931) H 01/30/20 03:19 Folate 3.20 ng/mL (>2.76) 01/30/20 03:19 COVID-19 Source Cancelled 01/30/20 04:40 COVID-19 (RAJANI) Cancelled 01/30/20 04:40 SARS-CoV-2 (PCR) NEGATIVE (NEGATIVE) 01/30/20 06:14 01/30/20 03:19 Troponin I < 0.012 Impressions: Chest X-Ray 01/30/20 02:45 IMPRESSION: Moderate patchy opacities of the right lung may indicate pneumonia or asymmetric pulmonary edema. Recommend CR/CT surveillance including at 7-12 weeks following initiation of any clinically warranted therapy. Plan Time Spent: Less than 30 Minutes Stroke Is this a Stroke Patient?: No Acute Heart Failure - Is this a Heart Failure Patient?: No
[2020-02-02 14:15] VITALS: BP 140/70
== END 2020-02-02 15:00 | disposition home or self-care (01) | DRG 871 ==
LOC: ER 02:32 → EH 04:44 → 4S 10:14
PROVIDERS: ADMIT Internal Medicine; ATTEND Internal Medicine
DX: A41.9 Sepsis, unspecified organism (principal); J15.9 Unspecified bacterial pneumonia; J44.1 Chronic obstructive pulmonary disease with (acute) exacerbation; E87.1 Hypo-osmolality and hyponatremia; J44.0 Chronic obstructive pulmonary disease with (acute) lower respiratory infection; E78.00 Pure hypercholesterolemia, unspecified; K21.9 Gastro-esophageal reflux disease without esophagitis; E03.9 Hypothyroidism, unspecified; E78.5 Hyperlipidemia, unspecified; Z79.899 Other long term (current) drug therapy; Z87.891 Personal history of nicotine dependence; Z79.82 Long term (current) use of aspirin; Z88.2 Allergy status to sulfonamides
CPT/HCPCS: 36415; 71045; 80048; 80053; 82607; 82728; 82746; 82803; 83540; 83550; 83605; 84484; 85025; 85045; 87040; 87635; 93005; 93010; 94640; 94667; 94668; 94799; 96365; 96367; 96368; 99285; J0456; J0696; J1644; J1885; J2920; J3475; J3490; J7030; J7040; J7060; J7620; J7626

== ENCOUNTER 2020-09-19 05:30 | Inpatient (IN) | payer MEDICARE, OTHER ==
[2020-09-19 06:05] LABS: ABSOLUTE EOSINOPHILS # (AUTO) 0.1 10^3/uL (0.0-0.6); ABSOLUTE LYMPHOCYTES (AUTO) 1.2 10^3/uL (0.5-4.7); ABSOLUTE MONOCYTES (AUTO) 0.4 10^3/uL (0.1-1.4); ABSOLUTE NEUT (AUTO) 4.7 10^3/uL (1.7-8.2); BASOPHILS % (AUTO) 0.6 % (0-2); EOSINOPHILS % (AUTO) 1.2 % (0-6); HEMATOCRIT 35.3 % (36.0-47.0); HEMOGLOBIN 12.2 g/dL (12.0-15.5); LYMPHOCYTES % (AUTO) 18.9 % (13-45); MEAN CORPUSCULAR HEMOGLOBIN 36.9 pg (27.0-33.4); MEAN CORPUSCULAR HGB CONC 34.5 g/dL (32.0-36.0); MEAN CORPUSCULAR VOLUME 107 fl (80-97); MONOCYTES % (AUTO) 5.5 % (3-13); PLATELET COUNT 204 10^3/uL (150-450); RED CELL DISTRIBUTION WIDTH 12.6 % (11.5-14.0); SEGMENTED NEUTROPHILS % (AUTO) 73.8 % (42-78); TOTAL CELLS COUNTED % (AUTO) 100 %; WHITE BLOOD COUNT 6.4 10^3/uL (4.0-10.5)
[2020-09-19 06:25] LABS: BLOOD UREA NITROGEN 24 mg/dL (7-20); CALCIUM 9.4 mg/dL (8.4-10.2); CHLORIDE 95 mmol/L (98-107); GLUCOSE 146 mg/dL (75-110); POTASSIUM 4.1 mmol/L (3.6-5.0)
[2020-09-19 06:31] LABS: ANION GAP 5 (5-19); CARBON DIOXIDE 32 mmol/L (22-30)
--- NOTE | 2020-09-19 06:55 | RADIOLOGY REPORT (SQ) ---
EXAM DESCRIPTION: X-ray single view chest. CLINICAL HISTORY: 80 years Female, shortness of breath COMPARISON: 01/30/2020 TECHNIQUE: Single portable x-ray view of the chest performed on 09/19/2020 at 5:54 AM FINDINGS: The lungs are well expanded and are essentially clear. There is a vague opacity in the inferior right hemithorax overlying the posterior right ninth rib. This may represent an area of atelectasis or scarring. Minimal inflammatory change is not excluded. There is no evidence of a pneumothorax. The cardiac silhouette is normal in size and configuration. The mediastinal contours are normal. No acute osseous abnormality is identified. No acute soft tissue abnormalities are seen. Lines and tubes: None. IMPRESSION: 1. Vague opacity in the inferior right hemithorax overlying the posterior right ninth rib possibly representing an area of atelectasis or scarring. Minimal inflammatory change is not excluded. 2. The lungs are otherwise clear.
--- NOTE | 2020-09-19 09:29 | EKG REPORT ---
SEVERITY:- ABNORMAL ECG - SINUS TACHYCARDIA VENTRICULAR PREMATURE COMPLEX LEFT AXIS DEVIATION LOW VOLTAGE IN FRONTAL LEADS NONSPECIFIC T ABNORMALITIES, ANT-LAT LEADS : Confirmed by: Greg Nettles MD 19-Sep-2020 09:28:43
[2020-09-19] MEDS ORDERED: METHYLPREDNISOLONE INJ 125 MG/2 ML SDV IV ONE (09:57)
[2020-09-19] MEDS ORDERED: CEFTRIAXONE INJ 1000 MG VIAL IV ONE (09:58)
[2020-09-19] MEDS ORDERED: AZITHROMYCIN 250 MG TABLET PO ONE (09:59)
--- NOTE | 2020-09-19 10:08 | ER Document Report ---
ED General - General Stated Complaint: BREATHING DIFFICULTY Time Seen by Provider: 09/19/20 08:38 Primary Care Provider: BELEN WYLIE FNP [Primary Care Provider] - Follow up as needed TRAVEL OUTSIDE OF THE [place] IN LAST 30 DAYS: No - HPI Notes: Chief complaint: Dyspnea History of present illness: 80-year-old female with longstanding history of severe COPD with several prior admissions for same and ongoing cigarette smoking of close to a pack per day not currently on oxygen at home comes in for increased difficulty breathing over the past several days. Increased cough. No sputum production. No chest pain. No fever. No known exposure to Covid. EMS documented low oxygen saturation on the truck and gave the patient several nebulizer treatments during transport. She was feeling much better by the time of arrival here. They also did a screening Covid test for her and this was reportedly negative. Patient is not currently on steroids. Past medical history of hypothyroidism, dyslipidemia, COPD, chronic bronchitis and persistent tobacco dependence. S Home Medications: Aspirin [Aspirin EC] 81 mg PO QHS 05/19/16 Fluticasone/Salmeterol [Advair 500-50 Diskus 28 Dose] 1 inh IH Q12 05/19/16 Pravastatin Sodium [Pravachol] 80 mg PO DAILY 05/19/16 Sertraline HCl [Zoloft] 100 mg PO DAILY 05/19/16 Tiotropium [place] [Spiriva Handihaler 18 mcg/dose (30 Dose)] 1 cap IH DAILY 05/19/16 Albuterol Sulfate [Proair HFA Inhalation Aerosol 8.5 gm MDI] 2 puff IH Q4 PRN 05/24/16 Ipratropium/Albuterol Sulfate [Iprat-Albut 0.5-3(2.5) mg/3 ml] 3 ml IH TIDP PRN 06/07/16 Bupropion HCl [Bupropion Xl] 300 mg PO DAILY 01/30/20 Cholecalciferol (Vitamin D3) [Vitamin D3 1000 Unit Tablet] 2,000 unit PO DAILY 01/30/20 Cyanocobalamin (Vitamin B-12) [Vitamin B-12 1000 mcg Tablet] 1,000 mcg PO DAILY 01/30/20 Diclofenac Sodium 4 gm TP QIDP PRN MDD LEFT HIP & KNEE 01/30/20 Levothyroxine Sodium 137 mcg PO Q6AM 01/30/20 Omeprazole 20 mg PO DAILY 01/30/20 Oxybutynin Chloride [Oxybutynin Chloride ER] 10 mg PO DAILY 01/30/20 - Related Data Allergies/Adverse Reactions: Sulfa (Sulfonamide Antibiotics) Adverse Reaction (Verified 05/19/16 14:50) Home Medications: Pravastatin, Sertraline, Spiriva, Advair, Albuterol, Atrovent, Levothyroxine, Nystatin, Oxycodone Past Medical History - General Information source: Patient, [facility] Records - Social History Smoking Status: Current Every Day Smoker Family History: Reviewed & Not Pertinent Patient has homicidal ideation: No - Past Medical History Cardiac Medical History: Reports: Hx Hypercholesterolemia Denies: Hx Heart Attack, Hx Hypertension Pulmonary Medical History: Reports: Hx Bronchitis, Hx COPD Denies: Hx Asthma Neurological Medical History: Denies: Hx Cerebrovascular Accident, Hx Seizures GI Medical History: Denies: Hx Hepatitis, Hx Hiatal Hernia, Hx Ulcer Musculoskeletal Medical History: Reports Hx Arthritis Psychiatric Medical History: Denies: Hx Depression Infectious Medical History: Denies: Hx Hepatitis Past Surgical History: Reports: Hx Orthopedic Surgery - bilat hip replacement. Denies: Hx Hysterectomy, Hx Mastectomy, Hx Open Heart Surgery, Hx Pacemaker - Immunizations Hx Diphtheria, Pertussis, Tetanus Vaccination: Yes Review of Systems - Review of Systems Notes: Constitutional: Negative for fever. HENT: Negative for sore throat. Eyes: Negative for visual changes. Cardiovascular: Negative for chest pain. Respiratory: As per HPI. Gastrointestinal: Negative for abdominal pain, vomiting or diarrhea. Genitourinary: Negative for dysuria. Musculoskeletal: Negative for back pain. Skin: Negative for rash. Neurological: Negative for headaches, weakness or numbness. 10 point ROS negative except as marked above and in HPI. Physical Exam - Vital signs Vitals: Temp Pulse Resp BP Pulse Ox 98.4 F 102 H 20 102/59 L 94 09/19/20 05:45 09/19/20 05:45 09/19/20 05:45 09/19/20 05:45 09/19/20 05:45 - Notes Notes: GENERAL: Chronically ill-appearing female patient approximately stated age currently on 4 L nasal O2 appearing relatively comfortable. SKIN: Good turgor no rashes. HEAD: Normocephalic atraumatic. EYES: Bilateral arcus senilis. PERRLA. EOMI. Conjunctivae and sclerae clear. EARS: CANALS AND TMS CLEAR. NOSE: CLEAR. MOUTH: Moist mucosa. Good dentition. No stridor or edema. No drooling. NECK: Supple. No masses or thyromegaly. No adenopathy. Carotids 2+ without bruits. No JVD. BACK: Symmetrical without tenderness. CHEST: Respirations unlabored on oxygen. Scattered faint end expiratory wheezes rhonchi bilaterally. HEART: Tachycardic. Regular rhythm. No murmur gallop or rub. ABDOMEN: Soft nontender without masses, organomegaly or rebound. Bowel sounds normally active. No bruits. GENITALIA: Deferred. EXTREMITIES: Moderate degenerative changes interphalangeal joints of both hands and she has 2+ clubbing of nails. No edema. No calf tenderness. Cap refill less than 1.5 seconds. Dorsalis pedis and posterior tibial pulses 3+ and symm etrical. NEUROLOGICAL: GCS 15. Alert and oriented x3. Fluent speech. Cranial nerves II through XII intact. Sensorimotor and cerebellar normal. Normal tone. PSYCHIATRIC: Appropriate affect. Course - Re-evaluation Re-evalutation: 09/19/20 10:08 I tried to take patient off oxygen she immediately desaturated to 88% on room air. She was restarted on oxygen. I ordered a blood gas but patient refused to have this drawn. X-ray shows a questionable patchy infiltrate. She had a negative Covid test on the rescue vehicle while being transported. She has a few persistent wheezes. I gave her some IV Solu-Medrol and additional nebulizer treatment and we have obtained blood cultures and started her on Rocephin and azithromycin. I requested a CTA of the chest. I will present patient to the on-call hospitalist for admission at this time. 09/19/20 10:15 Admission to hospitalist service accepted by Dr. Alvarenga. - Vital Signs Vital signs: Temp Pulse Resp BP Pulse Ox 98.5 F 102 H 22 H 124/73 96 09/19/20 08:26 09/19/20 05:45 09/19/20 09:00 09/19/20 09:01 09/19/20 09:00 - Laboratory Results Result Diagrams: 09/19/20 05:45 09/19/20 05:45 Laboratory Results Interpreted: 09/19/20 09/19/20 05:45 05:45 RBC 3.30 L Hct 35.3 L MCV 107 H MCH 36.9 H Sodium 131.7 L Chloride 95 L Carbon Dioxide 32 H BUN 24 H Est GFR (MDRD) Non-Af 55 L Glucose 146 H Critical Laboratory Results Reviewed: Yes Attending or Supervising Physician who Reviewed Labs: ZULAY MACKENZIE - Radiology Results Radiology Results Interpreted: 09/19/20 10:09 Chest X-Ray 09/19/20 05:33 IMPRESSION: 1. Vague opacity in the inferior right hemithorax overlying the posterior right ninth rib possibly representing an area of atelectasis or scarring. Minimal inflammatory change is not excluded. 2. The lungs are otherwise clear. Critical Radiology Results Reviewed: Yes Attending or Supervising Physician who Reviewed Radiology: ZULAY MACKENZIE Discharge - Discharge Clinical Impression: COPD exacerbation, Hyponatremia, Tobacco dependence Condition: Good Disposition: ADMITTED INPATIENT Admitting Provider: [place] Unit Admitted: Medical Floor Referrals: BELEN WYLIE FNP [Primary Care Provider] - Follow up as needed
--- NOTE | 2020-09-19 11:28 | RADIOLOGY REPORT (SQ) ---
EXAM DESCRIPTION: CTA CHEST IMAGES COMPLETED DATE/TIME: 09/19/2020 10:52 am REASON FOR STUDY: dyspnea, abn. CXR COMPARISON: 09/19/2020 TECHNIQUE: CT scan of the chest performed using helical scanning technique with dynamic intravenous contrast injection. Images reviewed with lung, soft tissue and bone windows. Reconstructed coronal and sagittal MPR images reviewed. Additional 3 dimensional post-processing performed to develop Maximal Intensity Projection images (NE P). All images stored on PACS. All CT scanners at this facility use dose modulation, iterative reconstruction, and/or weight based d osing when appropriate to reduce radiation dose to as low as reasonably achievable (ALARA). [facility]: Dose Right [facility]: CareDose [facility]: Dose Right [facility]: Teradose 4D [facility]: [employer] 360 CONTRAST TYPE AND DOSE: contrast/concentration: Isovue 350.00 mmol/ml; Total Contrast Delivered: 75. 0 ml; Total Saline Delivered: 27.2 ml Contrast bolus adequate for pulmonary arteries and aorta. RENAL FUNCTION: BUN 29; creatinine 0.98 RADIATION DOSE: CT Rad equipment meets quality standard of care and radiation dose reduction techniq ues were employed. CTDIvol: 5.6 - 10.1 mGy. DLP: 390 mGy-cm. . LIMITATIONS: None. FINDINGS: LUNGS AND PLEURA: Centrilobular emphysematous changes. Right middle lobe scarring versus atelectasis. Incidental note is made of a small focus of pleural thickening involving the right lowe r lobe. No focal consolidation. No pneumothorax. AORTA AND GREAT VESSELS: No aneurysm. No dissection. HEART: No pericardial effusion. Moderate to marked coronary artery calcifications. PULMONARY ARTERIES: No emboli visualized in the main pulmonary arteries or the segmental branches. HILAR AND MEDIASTINAL STRUCTURES: No identified masses or abnormal nodes. HARDWARE: None in the chest. UPPER ABDOMEN: Partially imaged probable left renal cyst. No acute findings. THYROID AND OTHER SOFT TISSUES: No masses or lymphadenopathy. BONES: No acute or significant finding. 3D MIPS: Confirm above findings. OTHER: No other significant finding. IMPRESSION: 1. No central or segmental pulmonary embolus. 2. No evidence of acute cardiopulmonary abnormality. 3. Chronic and incidental findings as detailed above. COMMENT: Quality ID # [id number]: Final reports with documentation of one or more dose reduction techniques (e.g., Automated exposure control, adjustment of the mA and/or kV according to patient size, use of iterative reconstruction technique) TECHNICAL DOCUMENTATION: JOB ID: [id number] 2010 [employer]- All Rights Reserved Reading location - IP/workstation name: [email or web address]
[2020-09-19] MEDS ORDERED: IPRATROPIUM/ALBUTEROL 0.5-2.5 MG/3 ML AMPUL NEB PRN (13:32)
[2020-09-19] MEDS ORDERED: GUAIFENESIN SYRP 200 MG/10 ML UDC PO PRN (13:32)
[2020-09-19] MEDS ORDERED: IPRATROPIUM BROMIDE 0.02% NEB 0.5 MG/2.5 ML AMPUL NEB PRN (13:37)
[2020-09-19] MEDS ORDERED: MORPHINE SULFATE 10 MG/ML INJ IV PRN (14:12)
[2020-09-19] MEDS ORDERED: HYDROCODONE/ACETAMINOPHEN 5-325 MG TABLET PO PRN (14:13)
[2020-09-19] MEDS: BUDESONIDE NEB 0.5 MG/2 ML AMPUL NEB SCH ×2 (14:23→20:19)
--- NOTE | 2020-09-19 14:23 | PDOC H&P ---
History of Present Illness Admission Date/PCP: 09/19/20 11:11 ROZINA CALLAHAN Patient complains of: reflux headache History of Present Illness: TANI CERON is a 80 year old female with history of COPD, chronic arthritic pain, presents with SOB that started last night. She has a chronic cough and has been smoking an unsual amount recently due to of spouse >1 month ago. She denies fever/chills was hypoxic per EMS 88%. Patient was not tested for COVID by EMS, and she denies diarrhea. O2 sat are improved in the ER after treatment ROS; negative other than that noted above on 12-point review PMH: persistent tobaccoism, COPD on room air, chronic deconditioning, chronic hip pain, osteroarthritis PSH:ankle surgery FH:cancer SH: smokes > 1PPD, heavy alcohol use, no recreational drugs Past Medical History Cardiac Medical History: Reports: Hyperlipidema Denies: Myocardial Infarction, Hypertension Pulmonary Medical History: Reports: Bronchitis, Chronic Obstructive Pulmonary Disease (COPD) Denies: Asthma Neurological Medical History: Denies: Seizures GI Medical History: Reports: Gastroesophageal Reflux Disease Denies: Hepatitis, Hiatal Hernia Musculoskeltal Medical History: Reports: Arthritis Psychiatric Medical History: Reports: Alcohol Dependency Denies: Depression Hematology: Denies: Anemia, Sickle Cell Disease Past Surgical History Past Surgical History: Reports: Orthopedic Surgery - bilat hip replacement Denies: Amputation, Hysterectomy, Mastectomy, Pacemaker Social History Smoking Status: Current Every Day Smoker Hx Prescription Drug Abuse: No Family History Family History: Reviewed & Not Pertinent Parental Family History Reviewed: Yes - cancer Children Family History Reviewed: No Sibling(s) Family History Reviewed.: No Medication/Allergy Home Medications: Fluticasone/Salmeterol [Advair 500-50 Diskus 28 Dose] 1 inh IH Q12 05/19/16 Pravastatin Sodium [Pravachol] 80 mg PO DAILY 05/19/16 Sertraline HCl [Zoloft] 100 mg PO DAILY 05/19/16 Tiotropium [place] [Spiriva Handihaler 18 mcg/dose (30 Dose)] 1 cap IH DAILY 05/19/16 Albuterol Sulfate [Proair HFA Inhalation Aerosol 8.5 gm MDI] 2 puff IH Q4 PRN 05/24/16 Ipratropium/Albuterol Sulfate [Iprat-Albut 0.5-3(2.5) mg/3 ml] 3 ml IH TIDP PRN 06/07/16 Bupropion HCl [Bupropion Xl] 300 mg PO DAILY 01/30/20 Levothyroxine Sodium 137 mcg PO Q6AM 01/30/20 Omeprazole 20 mg PO DAILY 01/30/20 Oxybutynin Chloride [Oxybutynin Chloride ER] 10 mg PO DAILY 01/30/20 Benzonatate 200 mg PO TID 09/19/20 Allergies/Adverse Reactions: Sulfa (Sulfonamide Antibiotics) Adverse Reaction (Verified 05/19/16 14:50) Physical Exam Vital Signs: Temp Pulse Resp BP Pulse Ox 98.5 F 102 H 19 189/95 H 99 09/19/20 08:26 09/19/20 05:45 09/19/20 13:01 09/19/20 13:02 09/19/20 13:02 Intake & Output 09/18/20 09/19/20 09/20/20 06:59 06:59 06:59 Weight 68.6 kg General appearance: PRESENT: no acute distress Head exam: PRESENT: atraumatic Eye exam: PRESENT: EOMI, PERRLA Mouth exam: PRESENT: moist Neck exam: ABSENT: lymphadenopathy Respiratory exam: PRESENT: clear to auscultation meaghan, other - 90% on RA Cardiovascular exam: PRESENT: RRR Pulses: PRESENT: +1 pedal pulses bilateral Vascular exam: PRESENT: normal capillary refill GI/Abdominal exam: PRESENT: normal bowel sounds, soft. ABSENT: tenderness Rectal exam: PRESENT: deferred Extremities exam: PRESENT: full ROM Musculoskeletal exam: ABSENT: deformity Neurological exam: PRESENT: alert, awake, oriented to time, oriented to situation, CN II-XII grossly intact, motor sensory deficit Psychiatric exam: PRESENT: appropriate affect, flat affect, normal mood Skin exam: PRESENT: normal color Results Laboratory Results: 09/19/20 05:45 09/19/20 05:45 09/19/20 09/19/20 05:45 05:45 WBC 6.4 RBC 3.30 L Hgb 12.2 Hct 35.3 L MCV 107 H MCH 36.9 H MCHC 34.5 RDW 12.6 Plt Count 204 Seg Neutrophils % 73.8 Sodium 131.7 L Potassium 4.1 Chloride 95 L Carbon Dioxide 32 H Anion Gap 5 BUN 24 H Creatinine 0.98 Est GFR ( Amer) > 60 Glucose 146 H Calcium 9.4 Impressions: Chest X-Ray 09/19/20 05:33 IMPRESSION: 1. Vague opacity in the inferior right hemithorax overlying the posterior right ninth rib possibly representing an area of atelectasis or scarring. Minimal inflammatory change is not excluded. 2. The lungs are otherwise clear. Chest/Abdomen CTA 09/19/20 09:59 IMPRESSION: 1. No central or segmental pulmonary embolus. 2. No evidence of acute cardiopulmonary abnormality. 3. Chronic and incidental findings as detailed above. Assessment and Plan - Diagnosis (1) COPD exacerbation Is this a current diagnosis for this admission?: Yes (2) Acute and chronic respiratory failure with hypoxia Is this a current diagnosis for this admission?: Yes (3) Tobacco dependence Is this a current diagnosis for this admission?: Yes (4) GERD (gastroesophageal reflux disease) Qualifiers: Esophagitis presence: esophagitis presence not specified Qualified Code(s): K21.9 - Gastro-esophageal reflux disease without esophagitis Is this a current diagnosis for this admission?: Yes (5) Hypoxia Is this a current diagnosis for this admission?: Yes - Plan Summary Summary: 80 yo F wheelchair bound with smoking and alcohol use more frequently since of spouse, admitted after SOB 1. COPD exacerbation with hypoxia: Rocephin/azithromycin, Steroisd O2 for support, home o2 eval at discharge, at baseline on room air, Nebs ordered, covid swab pending. I expect some degree of baseline hypercapnea, although she is refusing ABG. 2. Chronic pain/osteoarthritis: morphine/norco 3. GERD: hold home NSAIDs, H2 randi and carafate 4. Chronic pain: home health with PT/OT will need initiated at DC Dispo: inpatient >2 midnight Plan d/w daughter patient Code: DNR - Time Time Spent with patient: 25-34 minutes Anticipated Discharge Disposition: Home, Self Care Anticipated Discharge Timeframe: within 72 hours
[2020-09-19] MEDS: METHYLPREDNISOLONE INJ 40 MG/1 ML SDV IV SCH ×2 (14:32→21:52)
[2020-09-19] MEDS: ENOXAPARIN SODIUM INJ 40 MG/0.4 ML DISP.SYRIN SUBCUT SCH (14:32)
[2020-09-19] MEDS: ACETAMINOPHEN 325 MG TABLET PO PRN ×2 (14:33→21:52)
[2020-09-19] MEDS: SUCRALFATE 1 GM TABLET PO SCH ×3 (14:50→23:32)
[2020-09-19] MEDS: BUPROPION HCL 100 MG TABLET PO SCH (21:52)
[2020-09-19] MEDS: OXYBUTYNIN CHLORIDE 5 MG TABLET PO SCH (21:52)
[2020-09-19] MEDS: FAMOTIDINE 20 MG TABLET PO SCH (21:52)
[2020-09-19] MEDS ORDERED: NICOTINE 21 MG/24 HR PATCH.TD24 TD SCH (22:00)
[2020-09-19] MEDS ORDERED: ATORVASTATIN CALCIUM 20 MG TABLET PO SCH (22:00)
[2020-09-20 05:21] LABS: ABSOLUTE LYMPHOCYTES (AUTO) 0.4 10^3/uL (0.5-4.7); ABSOLUTE MONOCYTES (AUTO) 0.1 10^3/uL (0.1-1.4); ABSOLUTE NEUT (AUTO) 4.4 10^3/uL (1.7-8.2); BASOPHILS % (AUTO) 0.2 % (0-2); HEMATOCRIT 34.2 % (36.0-47.0); LYMPHOCYTES % (AUTO) 8.2 % (13-45); MEAN CORPUSCULAR HEMOGLOBIN 37.3 pg (27.0-33.4); MEAN CORPUSCULAR HGB CONC 35.2 g/dL (32.0-36.0); MEAN CORPUSCULAR VOLUME 106 fl (80-97); MONOCYTES % (AUTO) 1.7 % (3-13); PLATELET COUNT 196 10^3/uL (150-450); RED BLOOD COUNT 3.23 10^6/uL (3.72-5.28); RED CELL DISTRIBUTION WIDTH 12.5 % (11.5-14.0); SEGMENTED NEUTROPHILS % (AUTO) 89.9 % (42-78); TOTAL CELLS COUNTED % (AUTO) 100 %
[2020-09-20 05:44] LABS: ALBUMIN 3.9 g/dL (3.5-5.0); ALKALINE PHOSPHATASE 64 U/L (38-126); ANION GAP 8 (5-19); ASPARTATE AMINO TRANSFERASE 23 U/L (14-36); BILIRUBIN,DIRECT 0.2 mg/dL (0.0-0.4); BILIRUBIN,TOTAL 0.5 mg/dL (0.2-1.3); BLOOD UREA NITROGEN 23 mg/dL (7-20); CALCIUM 9.8 mg/dL (8.4-10.2); CARBON DIOXIDE 26 mmol/L (22-30); CHLORIDE 96 mmol/L (98-107); GLUCOSE 203 mg/dL (75-110); POTASSIUM 4.7 mmol/L (3.6-5.0); TOTAL PROTEIN 7.1 g/dL (6.3-8.2)
[2020-09-20] MEDS ORDERED: (PENDING PHARMACY ID) (Levothyroxine Sodium [Levothyroxine Sodium] 137 MCG Tablet) PO SCH (06:00)
[2020-09-20] MEDS: SUCRALFATE 1 GM TABLET PO SCH ×2 (06:17→12:22)
[2020-09-20] MEDS: BUPROPION HCL 100 MG TABLET PO SCH (06:17)
[2020-09-20] MEDS: METHYLPREDNISOLONE INJ 40 MG/1 ML SDV IV SCH (06:17)
[2020-09-20] MEDS: BUDESONIDE NEB 0.5 MG/2 ML AMPUL NEB SCH (08:45)
[2020-09-20] MEDS ORDERED: BENZONATATE 100 MG CAPSULE PO SCH (10:00)
[2020-09-20] MEDS ORDERED: AZITHROMYCIN 500 MG in DEXTROSE 5%-WATER 250 ML IV SCH (10:00)
[2020-09-20] MEDS ORDERED: CEFTRIAXONE 1 GM/D5W RTU 1 GM/50 ML RTUPB IV SCH (10:00)
[2020-09-20] MEDS ORDERED: SERTRALINE HCL 50 MG TABLET PO SCH (10:00)
[2020-09-20] MEDS ORDERED: UMECLIDINIUM BROMIDE 62.5 MCG/DOSE IH SCH (10:00)
[2020-09-20] MEDS ORDERED: PREDNISONE 20 MG TABLET PO SCH (10:00)
[2020-09-20] MEDS ORDERED: FLUTICASONE/VILANTEROL 200-25 MCG/DOSE IH SCH (10:00)
[2020-09-20] MEDS: ENOXAPARIN SODIUM INJ 40 MG/0.4 ML DISP.SYRIN SUBCUT SCH (10:13)
[2020-09-20] MEDS: FAMOTIDINE 20 MG TABLET PO SCH (10:13)
[2020-09-20] MEDS: OXYBUTYNIN CHLORIDE 5 MG TABLET PO SCH (12:19)
[2020-09-20 12:51] VITALS: BP 139/86
[2020-09-20] MEDS ORDERED: PANTOPRAZOLE SODIUM 40 MG TABLET.DR PO SCH (17:00)
--- NOTE | 2020-09-20 20:03 | PDOC DISCHARGE SUMMARY ---
Impression - Admit/DC Date/PCP Admission Date/Primary Care Provider: 09/19/20 11:11 ROZINA CALLAHAN Discharge Date: 09/20/20 - Assessment Summary: 80 yo F wheelchair bound woman with severe COPD, current tobacco use who presented for worsening SOB. She was found to have COPD exacerbation with hypoxia. She was started on Rocephin/azithromycin, Steroids, supplemental O2 for support, Duo-Nebs. Covid swab negative. I suspect she has some degree of baseline hypercapnea at baseline, although she refused ABG. She improved rapidly and was back to room air by the following day. She was discharged home in stable condition with oral antibiotics/steroids and close outpatient follow up. Code Status: DNR/DNI - Additional Information Resuscitation Status: Do Not Resuscitate Discharge Diet: Regular Discharge Activity: Activity As Tolerated Referrals: BELEN WYLIE FNP [Primary Care Provider] - (LEFT A MESSAGE FOR OFFICE TO CALL PATIENT WITH A HOSPITAL FOLLOW UP APPT. DATE AND TIME.) Prescriptions: Prednisone [Deltasone 20 mg Tablet] 40 mg PO DAILY #10 tablet Levofloxacin [Levaquin 750 mg Tablet] 750 mg PO DAILY #5 tablet Guaifenesin [Mucinex] 1,200 mg PO BID #60 tab.er.12h Home Medications: Fluticasone/Salmeterol [Advair 500-50 Diskus 28 Dose] 1 inh IH Q12 05/19/16 Pravastatin Sodium [Pravachol] 80 mg PO DAILY 05/19/16 Sertraline HCl [Zoloft] 100 mg PO DAILY 05/19/16 Tiotropium [place] [Spiriva Handihaler 18 mcg/dose (30 Dose)] 1 cap IH DAILY 05/19/16 Albuterol Sulfate [Proair HFA Inhalation Aerosol 8.5 gm MDI] 2 puff IH Q6HP PRN 05/24/16 Ipratropium/Albuterol Sulfate [Iprat-Albut 0.5-3(2.5) mg/3 ml] 3 ml IH Q4HP PRN 06/07/16 Bupropion HCl [Bupropion Xl] 300 mg PO DAILY 01/30/20 Levothyroxine Sodium 137 mcg PO Q6AM 01/30/20 Omeprazole 20 mg PO DAILY 01/30/20 Oxybutynin Chloride [Oxybutynin Chloride ER] 10 mg PO DAILY 01/30/20 Benzonatate 200 mg PO TID 09/19/20 Guaifenesin [Mucinex] 1,200 mg PO BID #60 tab.er.12h 09/20/20 Levofloxacin [Levaquin 750 mg Tablet] 750 mg PO DAILY #5 tablet 09/20/20 Prednisone [Deltasone 20 mg Tablet] 40 mg PO DAILY #10 tablet 09/20/20 History of Present Illiness History of Present Illness: TANI CERON is a 80 year old female Physical Exam Vital Signs: Temp Pulse Resp BP Pulse Ox 97.8 F 86 35 H 139/86 H 95 09/20/20 12:49 09/20/20 12:49 09/20/20 12:49 09/20/20 12:49 09/20/20 12:49 Pulse Oximeter Continuous Start: 09/19/20 13:32 Freq: RTQ4 Status: Discharge Protocol: [place] 09[place]20[place] 14:[place] [facility] [place]20[place] 14[place] [facility] [id number] Pulse Oximetry Assessment Equipment Usage Equipment Discontinued Continuous SpO2 Machine # [id number] Additional RT Notes Other pt has discharged Intake & Output 09/19/20 09/20/20 09/21/20 06:59 06:59 06:59 Intake Total 473 Balance 473 Weight 68.6 kg 65.6 kg Results Laboratory Results: WBC 5.0 10^3/uL (4.0-10.5) 09/20/20 04:22 RBC 3.23 10^6/uL (3.72-5.28) L 09/20/20 04:22 Hgb 12.0 g/dL (12.0-15.5) 09/20/20 04:22 Hct 34.2 % (36.0-47.0) L 09/20/20 04:22 MCV 106 fl (80-97) H 09/20/20 04:22 MCH 37.3 pg (27.0-33.4) H 09/20/20 04:22 MCHC 35.2 g/dL (32.0-36.0) 09/20/20 04:22 RDW 12.5 % (11.5-14.0) 09/20/20 04:22 Plt Count 196 10^3/uL (150-450) 09/20/20 04:22 Lymph % (Auto) 8.2 % (13-45) L 09/20/20 04:22 [place] % (Auto) 1.7 % (3-13) L 09/20/20 04:22 Eos % (Auto) 0.0 % (0-6) 09/20/20 04:22 Baso % (Auto) 0.2 % (0-2) 09/20/20 04:22 Absolute Neuts (auto) 4.4 10^3/uL (1.7-8.2) 09/20/20 04:22 Absolute Lymphs (auto) 0.4 10^3/uL (0.5-4.7) L 09/20/20 04:22 Absolute Monos (auto) 0.1 10^3/uL (0.1-1.4) 09/20/20 04:22 Absolute Eos (auto) 0.0 10^3/uL (0.0-0.6) 09/20/20 04:22 Absolute Basos (auto) 0.0 10^3/uL (0.0-0.2) 09/20/20 04:22 Seg Neutrophils % 89.9 % (42-78) H 09/20/20 04:22 Sodium 129.9 mmol/L (137-145) L 09/20/20 04:22 Potassium 4.7 mmol/L (3.6-5.0) 09/20/20 04:22 Chloride 96 mmol/L (98-107) L 09/20/20 04:22 Carbon Dioxide 26 mmol/L (22-30) 09/20/20 04:22 Anion Gap 8 (5-19) 09/20/20 04:22 BUN 23 mg/dL (7-20) H 09/20/20 04:22 Creatinine 0.94 mg/dL (0.52-1.25) 09/20/20 04:22 Est GFR ( Amer) > 60 (>60) 09/20/20 04:22 Est GFR (MDRD) Non-Af 57 (>60) L 09/20/20 04:22 Glucose 203 mg/dL (75-110) H 09/20/20 04:22 Calcium 9.8 mg/dL (8.4-10.2) 09/20/20 04:22 Total Bilirubin 0.5 mg/dL (0.2-1.3) 09/20/20 04:22 Direct Bilirubin 0.2 mg/dL (0.0-0.4) 09/20/20 04:22 Neonat Total Bilirubin Not Reportable 09/20/20 04:22 Neonat Direct Bilirubin Not Reportable 09/20/20 04:22 Neonat Indirect Bili Not Reportable 09/20/20 04:22 AST 23 U/L (14-36) 09/20/20 04:22 ALT 11 U/L (<35) 09/20/20 04:22 Alkaline Phosphatase 64 U/L (38-126) 09/20/20 04:22 Total Protein 7.1 g/dL (6.3-8.2) 09/20/20 04:22 Albumin 3.9 g/dL (3.5-5.0) 09/20/20 04:22 Influenza A (RT-PCR) NEGATIVE (NEGATIVE) 09/19/20 13:45 Influenza B (RT-PCR) NEGATIVE (NEGATIVE) 09/19/20 13:45 RSV (RT-PCR) NEGATIVE (NEGATIVE) 09/19/20 13:45 SARS-CoV-2 Rap RNA(RT-PCR) NEGATIVE (NEGATIVE) 09/19/20 13:45 Impressions: Chest X-Ray 09/19/20 05:33 IMPRESSION: 1. Vague opacity in the inferior right hemithorax overlying the posterior right ninth rib possibly representing an area of atelectasis or scarring. Minimal inflammatory change is not excluded. 2. The lungs are otherwise clear. Chest/Abdomen CTA 09/19/20 09:59 IMPRESSION: 1. No central or segmental pulmonary embolus. 2. No evidence of acute cardiopulmonary abnormality. 3. Chronic and incidental findings as detailed above. Stroke Is this a Stroke Patient?: No Acute Heart Failure Is this a Heart Failure Patient?: No
[2020-09-21] MEDS ORDERED: LEVOTHYROXINE SODIUM 0.112 MG TABLET PO SCH (06:00)
[2020-09-21] MEDS ORDERED: LEVOTHYROXINE SODIUM 0.025 MG TABLET PO SCH (06:00)
== END 2020-09-20 13:23 | disposition home or self-care (01) | DRG 192 ==
LOC: ER 05:30 → EH 11:11 → 4N 16:11
PROVIDERS: ADMIT Family Medicine; ATTEND Hospitalist
DX: J44.1 Chronic obstructive pulmonary disease with (acute) exacerbation (principal); Z20.828 Contact with and (suspected) exposure to other viral communicable diseases; Z66 Do not resuscitate; F17.210 Nicotine dependence, cigarettes, uncomplicated; K21.9 Gastro-esophageal reflux disease without esophagitis; G89.29 Other chronic pain; F10.20 Alcohol dependence, uncomplicated; E78.5 Hyperlipidemia, unspecified; Z96.643 Presence of artificial hip joint, bilateral; R09.02 Hypoxemia; Z99.3 Dependence on wheelchair; Z79.52 Long term (current) use of systemic steroids; Z79.899 Other long term (current) drug therapy; Z88.2 Allergy status to sulfonamides
CPT/HCPCS: 36415; 71045; 71275; 80048; 80053; 85025; 93005; 93010; 94640; 94762; 96374; 96375; 99285; 0241U; C9803; J0456; J0696; J1650; J2920; J2930; J3490; J7060; J7512